=== PATIENT | female | born 1980 | race Caucasian/White ===

== ENCOUNTER 2016-04-25 07:30 | Day surgery (SDC) | payer OTHER ==
--- NOTE | 2016-04-21 11:01 | HISTORY AND PHYSICAL ---
PREOPERATIVE DIAGNOSIS: Missed . CONDITION: Stable. HISTORY OF PRESENT ILLNESS: Ms. Mcfarlane is a 36-year-old 4, para 3, approximately 9 weeks gestation. She has had some bleeding and cramping and workup including ultrasound and beta hCG level suggesting missed AB. So, the plan is definitive treatment with a suction D C. PAST MEDICAL HISTORY: No past medical history. PAST SURGICAL HISTORY: Tonsillectomy and an arthroscopic knee surgery on her left side. [employer] DEPLOYMENT: Again 3 previous vaginal deliveries. Pap smear was done in 2016 at [facility] however do not have results from this. ALLERGIES: Carbocaine and local anesthetic. Also nuts, eggs and milk. FAMILY HISTORY: Negative for diabetes, hypertension or heart disease. SOCIAL HISTORY: She denies tobacco, alcohol, or drug use. PHYSICAL EXAMINATION: VITAL SIGNS: Weight 128, blood pressure 124/86/. She is alert and cooperative, no distress. NECK: Supple. LUNGS: Clear. HEART: Regular sinus rhythm. ABDOMEN: Soft. PELVIC: Deferred. EXTREMITIES: No cyanosis, clubbing, or edema in her extremities. LABORATORY DATA: HCG level on 04/13 was 63,527. Repeat on 04/19 was 45,747. Ultrasound done in April 2015 reveals a cervical length of 3, crown-rump length consistent with 6 weeks. No heart tones. Collapsing sac. ASSESSMENT: Missed . PLAN: Suction D C.
[2016-04-25] MEDS ORDERED: PEPCID ONE (08:27)
[2016-04-25] MEDS ORDERED: REGLAN ONE (08:27)
[2016-04-25] MEDS ORDERED: VALIUM ONE (08:28)
[2016-04-25] MEDS ORDERED: LR 1,000 ML ONE ×2 (08:28→12:39)
[2016-04-25] MEDS ORDERED: CYTOTEC PO ONE (09:15)
[2016-04-25] MEDS ORDERED: KEFZOL 1 GM/D5W 50 ML ONE (09:27)
[2016-04-25] MEDS ORDERED: CLAVE SECONDARY SET 11953 ONE (09:28)
[2016-04-25] MEDS ORDERED: LR 500 ML ONE (10:23)
[2016-04-25] MEDS ORDERED: TORADOL ONE (10:23)
[2016-04-25] MEDS ORDERED: ZOFRAN IV ONE (10:39)
[2016-04-25] MEDS ORDERED: TORADOL IV ONE (10:39)
[2016-04-25] MEDS ORDERED: NORCO-5 PO PRN (10:39)
[2016-04-25 10:49] VITALS: BP 123/81
[2016-04-25] MEDS ORDERED: DIPRIVAN 1% ONE (12:26)
[2016-04-25] MEDS ORDERED: ROBINUL ONE (12:38)
[2016-04-25] MEDS ORDERED: ZOFRAN ONE (12:38)
[2016-04-25] MEDS ORDERED: DECADRON ONE (12:39)
[2016-04-25] MEDS ORDERED: XYLOCAINE-MPF 2% ONE (12:39)
--- NOTE | 2016-04-25 16:02 | OPERATIVE NOTE ---
PROCEDURE DATE: 04/25/2016 DATE OF SURGERY: 04/25/2016. PREOPERATIVE DIAGNOSED: Missed . POSTOPERATIVE DIAGNOSIS: Missed . PROCEDURE: Suction dilation and curettage. PHYSICIAN: Dr. Royce Cruz. ANESTHESIA: General endotracheal with Dr. Nicholas. FINDINGS: She had an enlarged retroverted uterus 12 weeks. SPECIMENS: Products of conception removed. ESTIMATED BLOOD LOSS: 100 mL. COMPLICATIONS: No complications. Cytotec 800 mg given after surgery. DESCRIPTION OF PROCEDURE IN DETAIL: Ms Mcfarlane is a 36-year-old, 4, para 3, who was diagnosed with a missed AB. Appropriate consents were obtained, all questions were answered. She was brought to the operating room, where she was placed under general endotracheal anesthesia, prepped and draped in the dorsal lithotomy position. Bladder was drained of approximately 30 mL of clear urine, and a weighted speculum was placed. The anterior lip of the cervix was grasped with a single-tooth tenaculum, and the cervix was dilated with Hegar dilator to admit a #12 curved suction catheter. This was done and using a suction catheter the products were suctioned out. Once it was felt all the products were removed, sharp curetting was done. Some tissue was found in the right fundal area, so this was scraped and the suction catheter was reinserted. This tissue was sucked out. After this was done, the cervix was released from the single-tooth tenaculum. Uterus was massaged and 800 mg of Cytotec was given as a rectal dose. She was taken down from dorsal lithotomy, awakened, and taken to the recovery room in stable condition.
== END 2016-04-25 11:15 | disposition home or self-care (01) ==
LOC: OR 07:30
PROVIDERS: ATTEND Obstetrics & Gynecology
DX: O02.1 Missed abortion (principal); Z3A.09 9 weeks gestation of pregnancy
CPT/HCPCS: 88305; J0690; J1100; J1885; J2405; J7120